=== PATIENT | male | born 1960 | race Caucasian/White ===

== ENCOUNTER → 2018-09-09 | Outpatient (CLI) | payer BC ==
[2018-09-09 17:02] LABS: IMMUNOGLOBULIN A 275 MG/DL (70-400)
[2018-09-09 17:02] LABS: COMPLEMENT C3 124 MG/DL (90-180); COMPLEMENT C4 20 MG/DL (10-40); IMMUNOGLOBULIN G 787 MG/DL (681-1648); IMMUNOGLOBULIN M 59 MG/DL (40-230)
[2018-09-13 00:24] LABS: E001-IgE Cat Epith/Dander 3.81 kU/L (Class III); E005-IgE Dog Dander 0.14 kU/L (Class 0/I); F002-IgE Milk 0.24 kU/L (Class 0/I); F004-IgE Wheat < 0.10 kU/L (Class 0); F013-IgE Peanut 0.14 kU/L (Class 0/I); F014-IgE Soybean < 0.10 kU/L (Class 0); F026-IgE Pork < 0.10 kU/L (Class 0); F027-IgE Beef < 0.10 kU/L (Class 0); F245-IgE Egg, Whole < 0.10 kU/L (Class 0); FX02-IgE Food Mix (Sea Foods) Negative (.); G002-IgE Bermuda Grass < 0.10 kU/L (Class 0); G008-IgE Kentucky Bluegrass < 0.10 kU/L (Class 0); M001-IgE Penicillium chrysogen < 0.10 kU/L (Class 0); M002 IgE Cladosporium herbaru < 0.10 kU/L (Class 0); M003 IgE Aspergillus fumigatu < 0.10 kU/L (Class 0); M006-IgE Alternaria alternata < 0.10 kU/L (Class 0); T001-IgE Maple/Box Elder < 0.10 kU/L (Class 0); T003-IgE Common Silver Birch < 0.10 kU/L (Class 0); T006-IgE Cedar, Mountain < 0.10 kU/L (Class 0); T007-IgE Oak, White < 0.10 kU/L (Class 0); T008-IgE Elm, American < 0.10 kU/L (Class 0); T015-IgE Ash, White < 0.10 kU/L (Class 0); T041-IgE Hickory, White < 0.10 kU/L (Class 0); T070-IgE White Mulberry < 0.10 kU/L (Class 0); W001-IgE Ragweed, Short 0.15 kU/L (Class 0/I); W009-IgE Plantain, English < 0.10 kU/L (Class 0); W014-IgE Pigweed, Rough < 0.10 kU/L (Class 0); W018-IgE Sheep Sorrel < 0.10 kU/L (Class 0)
[2018-09-13 00:24] LABS: ALPHA 1 ANTITRYPSIN 128 mg/dL (90-200)
== END ==
LOC: M WUC 12:18
DX: J30.1 Allergic rhinitis due to pollen (principal); J30.81 Allergic rhinitis due to animal (cat) (dog) hair and dander; J30.89 Other allergic rhinitis; J32.0 Chronic maxillary sinusitis; H10.45 Other chronic allergic conjunctivitis
CPT/HCPCS: 82785

== ENCOUNTER → 2019-02-02 | Outpatient (REF) | payer BC | LOC: M LAB LCGH 13:22 | PROVIDERS: ATTEND Specialist | DX: M17.12 Unilateral primary osteoarthritis, left knee (principal) ==